=== PATIENT | female | born 1960 | race Caucasian/White ===

== ENCOUNTER → 2019-04-01 | Outpatient (CLI) | payer BC ==
--- NOTE | 2019-04-02 08:53 | MM ---
Reason for exam: screening (asymptomatic). Last mammogram was performed 4 years and 1 month ago. History: Patient is postmenopausal. Took hormonal contraceptives for 5 years. Physical Findings: A clinical breast exam by your physician is recommended on an annual basis and results should be correlated with mammographic findings. MG Screening Mammo w CAD Bilateral CC, MLO, and XCCL view(s) were taken. Prior study comparison: February 22, 2015, bilateral MG 3d screening mammo w/cad. The breast tissue is heterogeneously dense. This may lower the sensitivity of mammography. There are indeterminate microcalcifications upper outer right breast 11.7cm from nipple. This finding is changed when compared with previous exams. ASSESSMENT: Incomplete: need additional imaging evaluation, BI-RAD 0 RECOMMENDATION: Special view mammogram of the right breast. [facility] will attempt to contact patient to return for supplemental views.
== END ==
LOC: RADMAMWWP 09:03
PROVIDERS: ATTEND Family Medicine
DX: Z12.31 Encounter for screening mammogram for malignant neoplasm of breast (principal)
CPT/HCPCS: 77067

== ENCOUNTER → 2019-04-03 | Outpatient (CLI) | payer BC ==
--- NOTE | 2019-04-03 10:12 | MM ---
Reason for exam: additional evaluation requested from abnormal screening. Last mammogram was performed less than 1 month ago. History: Patient is postmenopausal. Took hormonal contraceptives for 5 years. Physical Findings: Nurse did not find any significant physical abnormalities on exam. MG Work Up Mamm w CAD RT CC with magnification, LM with magnification, and LM view(s) were taken of the right breast. Prior study comparison: April 01, 2019, bilateral MG screening mammo w CAD. February 22, 2015, bilateral MG 3d screening mammo w/cad. The breast tissue is heterogeneously dense. This may lower the sensitivity of mammography. There is a 9mm right upper outer quadrant posterior depth heterogeneous group of calcifications with a somewhat linear distribution on LM. Biopsy recommended. These results were verbally communicated with the patient and result sheet given to the patient on 04/03/19. ASSESSMENT: Suspicious, BI-RAD 4 RECOMMENDATION: Stereotactic core biopsy of the right breast. Called Dr. Hernandez's office with mammographic findings and has scheduled an appointment for the patient for 04/09/19 at 1:[address] Rhodes. Biopsy scheduled for 05/14/18 at 8:00. PRELIMINARY REPORT CALLED AND FAXED TO DR. RHODES ON 04/03/19.
== END | disposition home or self-care (01) ==
LOC: RADMAMWWP 08:21
PROVIDERS: ATTEND Family Medicine
DX: R92.8 Other abnormal and inconclusive findings on diagnostic imaging of breast (principal)
CPT/HCPCS: 77065

== ENCOUNTER → 2019-05-13 | Outpatient (CLI) | payer BC ==
[2019-05-13 15:29] VITALS: BP 160/92; PULSE 90; RESP 18; TEMP 98.2
--- NOTE | 2019-05-13 15:45 | P.GSHP ---
History of Present Illness H&P Date: 05/13/19 Chief Complaint: abnormal mammogram right breast [facility] regarding a mammographic abnormality in the right breast. Lennie is a 58-year-old white female who had a routine mammogram performed on [id number]. There was some indeterminate microcalcifications in the upper outer quadrant of the right breast and a diagnostic mammogram of the right breast was performed on [id number]. No lesions of concern were noted in the left breast. There was a 9 mm right upper quadrant posterior depth heterogeneous Calcifications in the right breast. This was felt to be of concern and stereotactic core biopsy was recommended. The patient does not feel any masses lumps or nodules in her breast. She is not complaining of any nipple discharge or skin changes. She does not complain of any recent trauma or infection in the breast. Family History: none Hormonal History: menarche: 12 , breast fed: none, first born at 22 menopause: 49 BCP: none hormones: none Surgical History: 1. tubaligation 2. Bilateral blepharoplasty 3. Bilateral carpal tunnel 4. 5 epidurals for back and neck pain Medical History: 1. back and neck pain/ arthritis bulging disc 2. hypothyroid disease 3. boarder line diabetic 4. low vitamin D Social History: smoke: 1 1/2 cigarettes /day alcohol: none drugs: none - Constitutional Constitutional: Reports sweats - EENT Eyes: denies blurred vision, denies pain Ears: deny: decreased hearing, tinnitus Ears, nose, mouth and throat: Denies headache, Denies sore throat - Breasts Breasts: bilateral: as per HPI - Cardiovascular Cardiovascular: Reports high blood pressure, Denies chest pain, Denies shortness of breath - Respiratory Comment: smoker - Gastrointestinal Gastrointestinal: Denies abdominal pain, Denies diarrhea, Denies nausea, Denies vomiting - Genitourinary (Female) Genitourinary: Denies dysuria, Denies hematuria - Menstruation Menstruation: Reports postmenopausal - Musculoskeletal Comment: back neck pain - Integumentary Integumentary: Denies pruritus, Denies rash - Neurological Neurological: Denies numbness, Denies weakness - Psychiatric Psychiatric: Reports anxiety - Endocrine Comment: boarder line diabetic - Hematologic/Lymphatic Comment: none Hematologic/Lymphatic: Reports as per HPI - Allergic/Immunologic Allergic/Immunologic: Reports seasonal allergies Medications and Allergies Home Medications Medication Instructions Recorded Confirmed Type Atenolol [Tenormin] 25 mg PO DAILY 04/28/19 04/28/19 History Celecoxib [CeleBREX] 200 mg PO DAILY 04/28/19 04/28/19 History Cetirizine HCl [Zyrtec] 10 mg PO DAILY 04/28/19 04/28/19 History Esomeprazole Magnesium 20 mg PO DAILY PRN 04/28/19 04/28/19 History Furosemide [Lasix] 20 mg PO DAILY 04/28/19 04/28/19 History Levothyroxine Sodium [Euthyrox] 25 mcg PO DAILY 04/28/19 04/28/19 History metFORMIN HCL [Glucophage] 500 mg PO BID 04/28/19 04/28/19 History traMADol HCL 50 mg PO TID 04/28/19 04/28/19 History Allergies Allergy/AdvReac Type Severity Reaction Status Date / Time No Known Allergies Allergy Verified 05/13/19 15:19 Surgical - Exam BMI 36 - General obese - Eyes normal ocular movement - ENT normal pinna, normal nares, no hearing loss, no congestion - Neck no masses, trachea midline, no lymphadectomy lymphadenopathy: right - Respiratory normal respiratory effort, clear to auscultation - Cardiovascular Rhythm: regular Heart Sounds: normal: S1, S2 - Abdomen Abdomen: soft, non tender, bowel sounds, no guarding, no rigid, no rebound - Integumentary normal turgor - Neurologic no disoriented, no combative - Musculoskeletal normal gait, normal posture - Psychiatric oriented to time, oriented to person, oriented to place, speech is normal, memory intact Inspection: BRA 40D Ptosis: grade 3 no skin changes of concern, no nipple inversion Palpation: right breast: multi-positional exam no dominant masses or nodules of concern Right axilla: No adenopathy of concern Left breast: Multi-positional exam no dominant masses or nodules of concern Left axilla: No adenopathy of concern Results mammogram results reviewed Assessment and Plan Assessment: Impression: 1. Radiographic abnormality right breast are tachycardic biopsy recommended 2. Hypertension 3. Back and neck pain/arthritis/bulging disc 4. boarder line diabetic 5. hypothyroid Plan: 1. stero biopsy of the right breast 2. stop celebrex 3. medical managment of medical conditions Risk and benefits of the procedure discussed. Risks include but are not limited to bleeding, infection, reaction to the anesthetic. There is always a possibility that this spot cannot be visualized which case the procedure will be canceled and a procedure in the operating room may be scheduled. If the pathology is discordant or atypical been an open biopsy in the operating room would be recommended. CC: DR. Mcmillan encounter 35 minutes > 50% of time spent in planning and counselling Time with Patient: Greater than 30
== END | disposition home or self-care (01) ==
LOC: WWCWWP 14:59
PROVIDERS: ATTEND Surgery
DX: Z53.9 Procedure and treatment not carried out, unspecified reason (principal)

== ENCOUNTER → 2019-05-14 | Day surgery (SDC) | payer BC ==
[2019-05-14 07:29] VITALS: RESP 16
[2019-05-14 09:07] VITALS: BP 125/78; PULSE 76; TEMP 97.9
--- NOTE | 2019-05-14 09:25 | P.PCN ---
Date of Procedure: 05/14/19 Preoperative Diagnosis: Microcalcifications of concern right breast Postoperative Diagnosis: Same Procedure(s) Performed: Right breast stereotactic core biopsy Anesthesia: local Surgeon: Naomi Rhodes Estimated Blood Loss (ml): 0 Pathology: other (Breast tissue) Condition: stable Disposition: same day Indications for Procedure: Microcalcifications of concern right breast Description of Procedure: The patient was taken to the stereotactic core biopsy room. She was noted to have a 9 mm right upper outer quadrant posterior depth heterogeneous calcifications with somewhat linear distribution. Risks and benefits of stereotactic core biopsy were discussed with the patient and she wished to proceed. The patient was taken to the stereotactic core biopsy room. She was positioned on the lower table. A scope film was obtained. The area of concern was identified. The breast was prepped using Betadine. 20 mL of 1% lidocaine was used to anesthetize the area of concern. 10 mL had epinephrine present. There was driven to correct coordinates. This was a 9-gauge vacuum-assisted core biopsy rotating needle. The needle was fired. Post fire films were obtained. Possibly 12 cores were obtained. Radiograph of the specimen revealed micro calcifications of concern to be in the specimen. A secure greg Top-Hat clip was placed. Patient tolerated procedure in stable condition. The patient will follow next week.
--- NOTE | 2019-05-14 12:10 | MM ---
EXAMINATION TYPE: MG stereo VAD BX RT DATE OF EXAM: 05/14/2019 COMPARISON: Mammogram 04/01/2019, 04/03/2019 CLINICAL HISTORY: Abnormal mammogram TECHNIQUE: Stereotactic guided core biopsy of right breast. FINDINGS: The abnormal calcifications were targeted using the stereotactic mammotome unit. Dr. Juliano Sanchez performed the remainder of the procedure. A vacuum assisted biopsy gun was used to obtain multiple core samples. The patient tolerated the procedure well without any immediate complication. The patient was kept in the radiology department for short stay after the procedure and then discharged home in stable condition. Targeted calcifications are identified in specimen mammogram. Post biopsy digital mammogram shows the clip to appear in satisfactory position relative to the targeted area of concern on the preprocedure images. IMPRESSION: SUCCESSFUL, UNCOMPLICATED STEREOTACTIC GUIDED CORE BIOPSY OF AREA OF CONCERN IN THE right BREAST, FULL PATHOLOGY RESULTS TO FOLLOW. Pathology Results: Benign RIGHT BREAST LESION, NEEDLE CORE BIOPSY: Fibrocystic and sclerosing adenosis spectrum lesions with abundant intraductal mineralizations in block A1. Recommendation Follow up mammogram of the right breast in 6 months. SHAREE
== END ==
LOC: RADMAMWWP 07:04
PROVIDERS: ATTEND Surgery
DX: N60.21 Fibroadenosis of right breast (principal); N60.11 Diffuse cystic mastopathy of right breast
CPT/HCPCS: 88305; 19081; A4648; J2001

== ENCOUNTER → 2019-05-22 | Outpatient (CLI) | payer BC ==
[2019-05-22 10:13] VITALS: BP 145/91; PULSE 74; RESP 18; TEMP 97.8
--- NOTE | 2019-05-22 10:40 | P.PN ---
Subjective Progress Note Date: 05/22/19 Principal diagnosis: Fibrocystic breast changes Lennie is a 58-year-old white female who is status post right breast stereotactic core biopsy performed on . Pathology revealed fibrocystic and sclerosing adenosis with abundant intraductal mineralization's. Patient has no complaints related to the procedure. Objective - Vital Signs Vital signs: Vital Signs Temp 97.8 F 05/22/19 10:10 Pulse 74 05/22/19 10:10 Resp 18 05/22/19 10:10 BP 145/91 05/22/19 10:10 Pulse Ox 97 05/22/19 10:10 Intake & Output 05/21/19 05/22/19 05/22/19 18:59 06:59 18:59 Weight 91.626 kg - Exam BMI 35.8 - Constitutional General appearance: Present: obese - EENT Eyes: Present: EOMI ENT: Present: hearing grossly normal - Neck Neck: Present: normal ROM - Respiratory Respiratory: bilateral: CTA - Cardiovascular Rhythm: regular Heart sounds: normal: S1, S2 - Integumentary Integumentary Comment(s): right breast biopsy site clean and dry no evidence of any infection - Musculoskeletal Musculoskeletal: Present: gait normal - Psychiatric Psychiatric: Present: A&O x's 3, appropriate affect, intact judgment & insight Assessment and Plan Assessment: Impression: 1. Patient status post right breast sterotactic core biopsy, pathology benign fibrocystic and sclerosing adenosis with abundant intraductal mineralization's 2. Cystic breast changes 3. Arthritis 4. Hypothyroid disease 5. Borderline diabetic 6. Nicotine dependence Plan: 1. Patient encouraged to stop smoking 2. Patient notices anything of concern she will call sooner 3. Follow-up in 6 months with right breast mammogram and physician exam CC: Dr. Hernandez encounter 15 minutes > 50% of time in planning and counselling Time with Patient: Less than 30
== END ==
LOC: WWCWWP 09:54
PROVIDERS: ATTEND Surgery
DX: Z53.9 Procedure and treatment not carried out, unspecified reason (principal)

== ENCOUNTER → 2019-11-03 | Outpatient (CLI) | payer BC ==
--- NOTE | 2019-11-03 10:40 | MM ---
Reason for exam: follow-up at short interval from prior study. Last mammogram was performed 7 months ago. History: Patient is postmenopausal. Benign MG stereo VAD BX RT of the right breast, May 14, 2019. Took hormonal contraceptives for 5 years. Physical Findings: Nurse did not find any significant physical abnormalities on exam. MG 3D Diag Mammo W/Cad RT CC and MLO view(s) were taken of the right breast. Prior study comparison: April 03, 2019, right breast MG work up mamm w CAD RT. April 01, 2019, bilateral MG screening mammo w CAD. The breast tissue is heterogeneously dense. This may lower the sensitivity of mammography. Finding: There are stable, fine, regional calcifications in the right breast. Previous mammotome biopsy in the right breast. No significant changes in finding since April 03, 2019 and April 01, 2019. These results were verbally communicated with the patient and result sheet given to the patient on 11/03/19. ASSESSMENT: Benign, BI-RAD 2 RECOMMENDATION: Return to routine screening mammogram schedule for both breasts. Back on schedule for March 2020.
== END ==
LOC: RADMAMWWP 09:36
PROVIDERS: ATTEND Surgery
DX: R92.8 Other abnormal and inconclusive findings on diagnostic imaging of breast (principal)
CPT/HCPCS: 77061; 77065

== ENCOUNTER → 2019-12-30 | Outpatient (CLI) | payer BC ==
--- NOTE | 2019-12-30 16:17 | US ---
EXAMINATION TYPE: US carotid duplex BILAT DATE OF EXAM: 12/30/2019 COMPARISON: NONE CLINICAL HISTORY: 59-year-old female Z82.49 Family history of heart disease. Headaches. TECHNIQUE: Carotid duplex ultrasound examination. Indirect Doppler criteria was utilized. 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 IMPRESSION: No hemodynamically significant internal carotid artery stenosis on either side. Criteria for Assigning % of Stenosis / Diameter reduction (Estimation based on the indirect measurements of the internal carotid artery velocities (ICA PSV). 1. Normal (no stenosis)=ICA PSV < 125 cm/s: ratio < 2.0: ICA EDV<40 cm/s. 2. Less than 50% stenosis=ICA PSV < 125 cm/s: ratio < 2.0: ICA EDV<40 cm/s. 3. 50 to 69% stenosis=ICA PSV of 125 to 230 cm/s: ration 2.0 ? 4.0: ICA EDV 40-100 cm/s. 4. Greater than 70% stenosis to near occlusion= ICA PSV > 230 cm/s: ratio > 4.0: ICA EDV > 100 cm/s. 5. Near occlusion= ICA PSV velocities may be low or undetectable: variable ratio and ICA EDV. 6. Total occlusion=unable to detect flow.
== END | disposition home or self-care (01) ==
LOC: RADUSWWP 14:53
PROVIDERS: ATTEND Family Medicine
DX: G44.209 Tension-type headache, unspecified, not intractable (principal); Z82.49 Family history of ischemic heart disease and other diseases of the circulatory system
CPT/HCPCS: 93880

== ENCOUNTER → 2020-04-04 | Outpatient (CLI) | payer BC ==
[2020-04-04 10:37] LABS: Cholesterol 255 mg/dL (<200); HDL Cholesterol 41 mg/dL (40-60); LDL Cholesterol,Calculated 163 mg/dL (0-99); Triglycerides 257 mg/dL (<150)
[2020-04-04 20:32] LABS: Hemoglobin A1C 6.3 % (4.0-6.0)
--- NOTE | 2020-04-05 11:21 | MM ---
Reason for exam: screening (asymptomatic). Last mammogram was performed 5 months ago. History: Patient is postmenopausal. Benign MG stereo VAD BX RT of the right breast, May 14, 2019. Took hormonal contraceptives for 5 years. Physical Findings: A clinical breast exam by your physician is recommended on an annual basis and results should be correlated with mammographic findings. MG 3D Screening Mammo W/Cad Bilateral CC and MLO view(s) were taken. Prior study comparison: November 03, 2019, right breast MG 3d diag mammo w/cad RT. April 03, 2019, right breast MG work up mamm w CAD RT. The breast tissue is heterogeneously dense. This may lower the sensitivity of mammography. There are benign appearing round dystrophic calcifications bilaterally. There is chronic nodularity in the left breast. There is no discrete abnormality. ASSESSMENT: Benign, BI-RAD 2 RECOMMENDATION: Routine screening mammogram of both breasts in 1 year.
== END | disposition home or self-care (01) ==
LOC: RADMAMWWP 09:30
PROVIDERS: ATTEND Surgery
DX: Z12.31 Encounter for screening mammogram for malignant neoplasm of breast (principal); E78.00 Pure hypercholesterolemia, unspecified; E11.9 Type 2 diabetes mellitus without complications
CPT/HCPCS: 77063; 77067; 80061; 83036